=== PATIENT | male | born 1985 | race Caucasian/White ===

== ENCOUNTER 2019-11-09 13:37 | Emergency (ER) | payer SELFPAY ==
--- NOTE | 2019-11-09 13:50 | UC ---
Throat Pain/Nasal Marty HPI - HPI Summary HPI Summary: CHIEF COMPLAINT: cough; possible Covid 19 exposure. HPI: This is a 34 year old coughing, shortness of breath; in contact with many people that live in [facility] and [facility]. Concerned about Covid. Cough began 2 days ago. Began in sinuses and now in chest; orange phlegm that coughed today. Night time chills. Checking temperature, no evidence of fever. SOB with walking. No history of asthma. No chest pain. Description of Pain: none VITAL SIGNS REVIEWED. Within normal limits unless noted here. 138/85 NURSES NOTE REVIEWED. "pt has been feverish, coughing, breathing difficulty. pt states he feels slightly short of breath. fatigue with exertion. pt has been in contact with people from [facility]." - History of Current Complaint Stated Complaint: SINUS ISSUE SORE THROAT COUGH CHILLS Time Seen by Provider: 11/09/19 13:43 Hx Obtained From: Patient - Allergies/Home Medications Allergies/Adverse Reactions: Allergies Allergy/AdvReac Type Severity Reaction Status Date / Time shellfish derived Allergy Anaphylatic Verified 11/09/19 14:06 Shock Home Medications: Home Medications Multivitamin [Multiple Vitamins] 1 tab PO DAILY 04/17/19 [History Confirmed ] PMH/Surg Hx/FS Hx/Imm Hx - Additional Past Medical History Additional PMH: PAST MEDICAL HISTORY- CHRONIC and RECURRENT HEALTH PROBLEM LIST REVIEWED. Information relevant to present complaint: none. VISIT HISTORY REVIEWED. MEDICATIONS & ALLERGIES REVIEWED. HYPERTENSION STATUS: none 138/ FAMILY HISTORY: Positive for DM and cancer. SOCIAL HISTORY: Smoker: 9 years ago Home: with girlfriend, no illness Employment: [employer] Previously Healthy: Yes - Surgical History Surgical History: None - Social History Alcohol Use: Occasionally Substance Use Type: Marijuana Smoking Status (MU): Former Smoker Review of Systems All Other Systems Reviewed And Are Negative: Yes Respiratory: Positive: Shortness Of Breath, Cough - orange phlegm; cough began 2 days ago Cardiovascular: Positive: Negative Gastrointestinal: Positive: Negative Is Patient Immunocompromised?: No Physical Exam - Summary Physical Exam Summary: Appearance: The patient is well-appearing, is in no pain or distress, and is well-nourished. Eyes: Conjunctiva are clear. Pupils are equal and reactive to light and accommodation. Extra ocular muscle movement is intact. ENT: The hearing is grossly normal, the pharynx is normal, and the TMs are normal. There is no muffled or hoarse voice. No stridor. Neck: The neck is supple and there is no lymphadenopathy. Respiratory: The chest is non-tender to palpation and without crepitus. The lungs are clear, there are normal breath sounds, and there is no respiratory distress. No wheezes, rales or rhonchi. Cardiovascular: Heart sounds reveal a regular rate and rhythm. There are no clicks, rubs or murmurs. There are no carotid bruits or thrills. Circulation is grossly intact. Abdomen: The abdomen is soft and nontender. There is no organomegaly. Bowel sounds are present and within normal limits. No point tenderness at McBurneys point. No CVA tenderness. Musculoskeletal: Strength is intact. The patient moves all extremities. Neurological: The patient is alert. Motor and sensory are examination grossly intact. Speech is normal. Psychological: The patient displays age appropriate behavior, and is conversant. GCS=15. Skin: Negative for rashes. Exam performed utilizing CDC recommended PPE. 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 Concerned about Covid 19. Exposed 6 days ago; cough began 2 days ago. Began in sinuses and now in chest; orange phlegm coughed today. Night time chills. Checking temperature, no evidence of fever. SOB with walking. No history of asthma. Otherwise, just some bloating. PMH: denies serious illness, surgery or admissions. Family history is positive for diabetes and cancer. Non-smoker. Quit 9 years ago. 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 Physical examination is within normal limits except for cough. Patient will be tested for coronavirus. Possible viral URI. Patient will self-quarantine. - Differential Dx/Diagnosis Differential Diagnosis/HQI/PQRI: URI, Other - Covid-19 Provider Diagnosis: URI (upper respiratory infection), Exposure to 2019 novel coronavirus Discharge ED - Sign-Out/Discharge Documenting (check all that apply): Patient Departure All imaging exams completed and their final reports reviewed: No Studies - Discharge Plan Condition: Stable Disposition: HOME Referrals: No Primary Care Phys,NOPCP [Primary Care Provider] - Additional Instructions: WE DISCUSSED: PLEASE SEEK CARE AT THE EMERGENCY DEPARTMENT IF SYMPTOMS WORSEN OR IF NEW SYMPTOMS DEVELOP. FOLLOW UP WITH YOUR PRIMARY CARE PHYSICIAN IF CONDITION CONTINUES BEYOND 3 DAYS WITHOUT IMPROVEMENT. YOUR DIAGNOSIS IS: cough, possible viral respiratory infection; test for Covid- 19 YOUR PRESCRIPTION RECOMMENDATION IS: none OTHER INSTRUCTIONS: Hypertension Discharge Instructions: Your blood pressure reading today was , indicating HYPERTENSION. Follow-up with your primary care provider within 4 weeks for blood pressure check and appropriate recommendations and treatment, as needed. FOR PAIN AND/OR SLEEP: For pain: Ibuprofen (Motrin and other brand names) 400-600mg PLUS acetaminophen (Tylenol and other brand names) 500mg - 1000mg every 8 hours. DO NOT TAKE IBUPROFEN IF YOU ARE BEING EVALUATED FOR COVID-19. Blood pressure today was 138/85; slightly high. This may be related to anxiety or your current illness. Nonetheless, recheck over the next month to see if your blood pressure is 120/80 or less. Follow up if your blood pressure is above this number. You are being tested for COVID-19. You need to quarantine yourself in a bedroom and bathroom only you are using. You may not leave the house. [facility] will contact you and notify of results when they are available. Stay on home isolation until cleared by the health department. Go to ED for increased SOB or any difficulty breathing - new or worsening symptoms. Other information: The most important goal is to liquefy all the phlegm and mucus, and get it out of your head and chest. For sore throat, it is important to keep throat moist and protected. Any illness causing cough, congestion, sore throat or sinus discomfort can be helped by doing the following: To clear you head, sinuses and chest of congestion: stand under a warm shower stream to loosen secretions. Use a vaporizor. Stay away from smoke or irritants. Use saline nasal spray or Neti Pot to keep the flow of mucus from your nostrils and sinuses. For sore throat: drink lots of warm fluids. Tea and honey is particularly useful because the honey can coat protect your throat. Gargle with warm water with 1/2 teaspoon of salt per 8 ounces of water. Gargle for a few seconds and spit out. Repeat every three hours. Keep your throat protected with lozenges. Don't let your throat dry out. Use a vaporizor at night. Make sure to check with your pharmacist if you are taking other prescription medication prior to taking any over the counter medications listed here. DECONGESTANTS: helps relieve stuffiness and clears sinuses. Pseudoephedrine ( Sudafed or generic) is effective but you need to ask the pharmacist for it because it may be kept behind the counter. ANTIHISTAMINES: are not helpful in many colds and flus because they can worsen sore throat, dry eyes and mouth and cause drowsiness. Examples are diphenhydramine, doxylamine and chlorpheniramine. They can help dry you out if you are having profuse, clear drainage from the nose or post-nasal drip. EXPECTORANTS: helps thin mucous in the nose and chest, making it easier to clear the fluid out. Expectorants are in most combination cough/cold remedies and should be taken with plenty of water. Guaifenesin is the most common expectorant and it comes in pill or liquid form. Mucinex is an extended release form of guaifenesin. COUGH SUPPRESSANT: reduces the body's cough reflex. Dextromethorphan is in over the counter products, but sometimes narcotics such as codeine or hydrocodone are used to suppress cough. SPECIFIC MEDICATIONS: The following medicines may help: To help with cough: DEXTROMETHORPHAN (Vicks, Robitussin, Nyquil and other brands) To help break up phlegm: GUAIFENESIN (Mucinex, Robitussin, other brands) To help clear congestion in the nose and sinuses: PSEUDOEPHEDRINE (Sudafed, Dimetapp, other brands) To help clear nasal congestion: AFRIN NASAL SPRAY: 2-3 SPRAYS PER NOSTRIL, TWICE A DAY FOR TWO DAYS ONLY. FLONASE: (or other steroid nasal sprays) can help if your running nose is caused by an allergy. It can help relieve congestion. It is used once a day in each nostril. Check the dose with your pharmacist. FOLLOW-UP: re-check in 10 days if you are not improving. Return here or see your caregiver. RE-CHECK SOONER if you have increased pain, temperature, cough, sinus symptoms, or difficulty breathing or swallowing. Go directly to Emergency Department if symptoms are severe. - Billing Disposition and Condition Condition: STABLE Disposition: Home
[2019-11-09 14:15] VITALS: BP 138/85
== END 2019-11-09 14:37 | disposition home or self-care (01) ==
LOC: UCEAST 13:37
DX: J06.9 Acute upper respiratory infection, unspecified (principal); Z91.013 Allergy to seafood; Z87.891 Personal history of nicotine dependence
CPT/HCPCS: 99212; G0463; U0002